=== PATIENT | male | born 1955 | race Caucasian/White ===

== ENCOUNTER 2020-07-08 15:26 | Observation (INO) | payer MEDICARE, OTHER, SELFPAY ==
[2020-07-08] VITALS (28 sets, daily range): BP systolic 90–120; BP diastolic 64–87; PULSE 61–93; RESP 9–18; TEMP 36.4–36.6; O2SAT 93–100; BMI 25.5
--- NOTE | ~2020-07-08 | US_ITS ---
EXAMINATION: US carotid duplex BI DATE: 07/09/2020 14:07 INDICATION: Syncope TECHNIQUE: Grayscale, color Doppler, and pulsed Doppler images of the cervical carotid arteries were obtained. The degree of vessel stenosis is placed in one of the following categories: normal, <50%, 5 0-69%, >=70% but less than near-occlusion, near-occlusion, or total occlusion. Note that percent sten osis relative to normal distal artery lumen diameter is indirectly measured from velocity measurement s as described by Morro, et al. Radiology 2003; 229:340-346. Notes: Normal: Peak systolic velocity <125 centimeters/sec and no plaque <50%. Peak systolic velocity <125 ( EDV <40; ICA/CCA PSV ratio <2.0; used these factors only a tandem lesions or low cardiac output or co ntralateral disease) 50-69 %: PSV 125-230 (EDV 40-100; ratio 2-4) >= 70% but less than near occlusion: PSV greater than 230 (EDV > 100; ratio> 4.0) Near Occlusion: PSV that is variable; markedly narrowed lumen Occlusion: Absent flow on color/spectral Doppler and no lumen on luo scale. COMPARISON: None. FINDINGS: RIGHT: The right common carotid artery (CCA) peak systolic velocity (PSV) is 76 cm/s. The right internal car otid artery (ICA) PSV is 73 cm/s. The right ICA end-diastolic velocity (EDV) is 12 cm/s. The right IC A/CCA PSV ratio is 1. The external carotid artery (ECA) PSV is 84 cm/s. There is antegrade flow in th e right vertebral artery. LEFT: The left CCA PSV is 75 cm/s. The left ICA PSV is 61 cm/s. The left ICA EDV is 24 cm/s. The left ICA/C CA PSV ratio is 0.8. The ECA PSV is 72 cm/s. There is antegrade flow in the left vertebral artery. IMPRESSION: 1. Less than 50% stenosis in the right internal carotid artery by sonographic criteria. 2. Less than 50% stenosis in the left internal carotid artery by sonographic criteria. Reviewed, dictated and finalized at [facility]. Reviewed, dictated and finalized at [facility]. IMPRESSION: 1. Less than 50% stenosis in the right internal carotid artery by sonographic c riteria. 2. Less than 50% stenosis in the left internal carotid artery by sonographic cr maoia.
--- NOTE | ~2020-07-08 | CT_ITS ---
EXAMINATION: CT brain wo con EXAM DATE: 07/08/2020 18:25 INDICATION: Syncope, head injury in temporal area when he fell. TECHNIQUE: Spiral CT of the head was performed without contrast. Axial, coronal and sagittal images were reviewed. The dose-length product (DLP) for this examination was 605.33 mGy-cm. The exposure w as tailored according to patient size, and iterative reconstruction (ASIR) was used as additional dos e reduction technique. There is no prior study for comparison. FINDINGS: There is no acute intraparenchymal hemorrhage. No evidence of intraparenchymal brain mass lesion. No evidence of acute infarction. There is no mass effect or midline shift. The ventricles are normal in size. There are no extra-axial collections. There are no acute calvarial fractures. T he orbits are unremarkable. Soft tissue is unremarkable. The visualized sinuses and mastoid air joe ls are well aerated. IMPRESSION: 1. No acute intracranial findings. Reviewed, dictated and finalized at [facility].
--- NOTE | ~2020-07-08 | XR_ITS ---
EXAMINATION: XR chest 1V EXAM DATE: 07/08/2020 18:31 INDICATION: Syncope. Dizziness. Recent stem cell transplant. TECHNIQUE: Portable AP frontal chest x-ray was obtained. There is no prior study for comparison. FINDINGS: There is a double-lumen catheter with right IJ approach. Tip overlying expected position. T he lungs are clear. There are no pleural effusions. The cardiomediastinal silhouette is within norm al limits. There is no pneumothorax suspected. The bones and soft tissues are unremarkable. IMPRESSION: No acute cardiopulmonary findings. Reviewed, dictated and finalized at [facility].
--- NOTE | 2020-07-08 16:06 | ECG_ITS ---
Measurements Intervals [place] Rate: 86 P: 65 NC: 129 QRS: 18 QRSD: 72 T: 40 QT: 349 QTc: 419 Interpretive Statements SINUS RHYTHM INCOMPLETE RIGHT BUNDLE BRANCH BLOCK BASELINE ARTIFACT- I, II, III, AVR, AVL, AVF BORDERLINE ECG Electronically Signed On 07-08-2020 16:44:22 CDT by Liam Florian D.O.
[2020-07-08 16:39] LABS: Basophils Percent Auto 0.1 % (0.2-1.2); Eosinophils Percent Auto 0.3 % (0-4.4); Hematocrit 36.4 % (42.0-52.0); Hemoglobin 12.1 g/dL (14.0-18.0); Immature Granulocyte Absolute 0.16 K/mm3 (0.00-0.031); Immature Granulocyte Percent A 1.6 % (0-0.5); Immature Platelet Fraction Pct 5.5 % (0.9-11.2); Lymphocytes Absolute Auto 0.42 K/mm3 (0.9-3.2); Lymphocytes Percent Auto 4.3 % (18.3-44.2); Mean Corpuscular HGB Conc 33.2 g/dl (32-36); Mean Corpuscular Hemoglobin 32.9 pg (26-34); Mean Corpuscular Volume 98.9 fl (80-100); Mean Platelet Volume 10.7 fl (7.4-10.4); Monocytes Absolute Auto 1.5 K/mm3 (0.1-0.6); Monocytes Percent Auto 15.6 % (2.6-8.5); Neutrophils Absolute Auto 7.6 K/mm3 (1.3-6.7); Neutrophils Percent Auto 78.1 % (45.5-73.1); Platelet Count Result 102 k/mm3 (150-375); Red Blood Count 3.68 M/mm3 (4.6-6.20); Red Cell Distribution Width 18.6 % (11.5-14.5); White Blood Count 9.7 K/mm3 (4.5-10.0)
[2020-07-08 16:48] LABS: Alanine Aminotransferase 43 U/L (4-50); Albumin Level 3.4 g/dL (3.5-5.1); Alkaline Phosphatase 81 U/L (38-126); Anion Gap 6 mmol/L (8-16); Aspartate Amino Transferase 30 U/L (17-59); Bilirubin,Total 0.5 mg/dL (0.2-1.3); Blood Urea Nitrogen 24 mg/dL (9-20); Calcium 8.3 mg/dL (8.4-10.2); Carbon Dioxide 27 mmol/L (22-30); Chloride 103 mmol/L (98-107); Estimated CRCL calculation 54 ml/min; Estimated Glomerular Filt Rate 55; Glucose 101 mg/dL (75-110); INR 1.1; Prothrombin Time 13.9 Seconds (11.1-14.7); Sodium 136 mmol/L (137-145)
[2020-07-08 17:00] LABS: Troponin I 0.015 ng/mL (0.000-0.034)
--- NOTE | 2020-07-08 17:29 | ED.SYNCOPE ---
HPI - Syncope General Chief Complaint: Syncope Stated Complaint: syncopal episode Time Seen by Provider: 07/08/20 17:26 Source: RN notes reviewed History of Present Illness HPI narrative: Patient presents emergency department from home for syncopal episode. Patient states he was sitting down when he stood up he became dizzy and had a syncopal episode. He states he struck his head when he fell and believes he was only out for short amount of time. Patient currently has no complaints he denies any fevers or chills chest pain shortness of breath abdominal pain nausea vomiting or any other symptoms. Patient states he does have a recent history of a bone marrow transplant and is followed by [facility] with bone marrow transplant in April Related Data Home Medications Medication Instructions Recorded Confirmed acyclovir TID 07/08/20 dronabinol [Marinol] 5 mg PO BID 07/08/20 duloxetine mg PO DAILY 07/08/20 ezetimibe mg DAILY 07/08/20 famotidine DAILY 07/08/20 fluconazole DAILY 07/08/20 mycophenolate mofetil PO TID 07/08/20 ondansetron HCl PRN 07/08/20 prednisone 40 mg PO DAILY 07/08/20 sulfamethoxazole-trimethoprim 07/08/20 tacrolimus PO BID 07/08/20 Allergies Allergy/AdvReac Type Severity Reaction Status Date / Time hydrocodone Allergy Mild ANXIOUS/RESTLESS/UNABLE Verified 02/12/15 08:08 TO SLEEP FOR SEVERAL DAYS Review of Systems Review of Systems: Narrative: Gen.: Denies fevers or chills Eyes: Denies eye pain or visual change ENT: Denies congestion Respiratory: Denies shortness of breath or cough CV: Denies chest pain or palpitations, reports syncopal episode GI: Denies abdominal pain nausea, emesis or diarrhea denies burning, urgency, frequency or hematuria Musculoskeletal: Denies back pain or muscle pain Neuro: Denies numbness, tingling, weakness or focal weakness Skin: Denies rash Except as documented, all other systems reviewed and negative [facility] Surgical History Surgical History (Updated 07/08/20 @ 17:31 by Jv Jeter DO) Bone marrow replaced by transplant Social History Social History (Updated 07/08/20 @ 17:31 by Jv Jeter DO) Smoking status: Never smoker Gender identity (if verbalized by the patient): Male Exam Narrative: Exam Narrative: APPEARANCE: No acute distress, nontoxic, resting in bed EYES: EOMI, Michael HEENT: Normocephalic, mild abrasion to left posterior inferior scalp, OMM, nares patent RESPIRATORY: No respiratory distress Clear to auscultation bilaterally with no rhonchi wheezing or rales. CARDIOVASCULAR: Regular rate and rhythm without murmurs rubs or gallops. ABDOMINAL: Soft, nontender, nondistended, no rebound or guarding MUSCULOSKELETAl: Moves all extremities. No clubbing, cyanosis or edema. NEURO: Awake and alert x 4. Following commands, speech normal, no focal deficits SKIN:: Warm, dry. No rashes lesions or abrasions PSYCHIATRIC: Normal affect/mood, Course Course Emergency Course: Called and discussed with Dr. Berry at [facility] for hematology. Discussed presentation work-up. Does accept transfer at this time but states with discussion with transfer line [place] will have no beds this evening. They state if the patient is admitted to our facility and orthostasis has improved they can be discharged tomorrow without need for transfer but will place on waiting list as of the patient does continue to have orthostasis or further syncope will be transferred when bed available at [place] Discussed with Dr. Hoff presentation work-up. Agrees with admission at this time Discussed with patient and family results of workup and diagnosis. Discussed need for admission. Patient and family understand and agree to current treatment plan Vital Signs Vital signs: Vital Signs Temperature 97.5 F L 07/08/20 16:20 Pulse Rate 93 07/08/20 16:20 Respiratory Rate 18 07/08/20 16:20 Blood Pressure 96/68 L 07/08/20 16:20 Pulse O
[2020-07-08] MEDS: SODIUM CHLORIDE 0.9% IV 1,000 ML 999 ML IV CONT ×2 (17:46→21:34)
[2020-07-08 19:28] LABS: Add Urine Microscopic? YES; Appearance Urine Clear (Clear); Bilirubin Urine Negative (Negative); Blood Urine Negative (Negative); Color Urine Yellow (Yellow); Glucose Urine UA 1+ mg/dL (Negative); Ketones Urine Negative (Negative); Leukocyte Esterase Ur Negative LEU/UL (Negative); Mucus Urine Few /lpf; Nitrate Urine Negative (Negative); Protein Urine 1+ mg/dL (Negative); RBC Urine 0-2 /hpf (0-2); Squamous Epithelial Cell Urine Rare /hpf (Few); WBC Urine 0-3 /hpf
[2020-07-08 19:29] LABS: Specific Grav Ur 1.033 (1.001-1.035)
--- NOTE | 2020-07-08 23:07 | ADMGEN ---
This patient, Jv Brown, was admitted to 3 [facility] Surg Room 310-01. Patient/family oriented to hospital policies and general routines including ID bracelet, bed and alarms, visiting hours, pain management, procedures, bathroom and other care routines, personal items, smoking policy, room service/diet, and visiting hours. Valuables list has been completed. Information on how to activate the Rapid Response Team has been discussed. Patient/Family are encouraged to report perceived risks to care and to ask questions if they do not understand what they are told or what they should do.
[2020-07-08] MEDS: SODIUM CHLORIDE 0.9% IV 1,000 ML 125 ML IV CONT (23:41)
[2020-07-09] VITALS (10 sets, daily range): BP systolic 107–130; BP diastolic 65–88; PULSE 58–70; RESP 16–20; TEMP 36.3–36.8; O2SAT 97–99; BMI 25.5
--- NOTE | 2020-07-09 | ECHO_ITS ---
Patient Info Name: Jv Brown Age: 65 years : 1955 Gender: Male Ht: 72 in Wt: 188 lbs BSA: 2.09 m2 HR: 59 bpm BP: 107 / 65 mmHg Heart Rhythm: Sinus Rhythm Technical Quality: Good Exam Date: 07/09/2020 11:19 AM Exam Location: [facility]monary Patient Status: Inpatient Admit Date: 07/08/2020 Staff Ordering Physician: Jaelyn Mo PA-C Accounts Collector: Dru Crabtree, TIFFANI, RT Attending Provider: Jaelyn Mo PA-C Referring Physician: Chely ODONNELL; Exam Type: CA echo doppler color flow Study Info Indications R55 - Syncope and collapse Complete two-dimensional, color flow and Doppler transthoracic echocardiogram is performed. Summary 1. Complete two-dimensional, color flow and Doppler transthoracic echocardiogram is performed. 2. Left ventricular systolic function is normal, estimated at 65-70%. 3. There is mildly increased left ventricular wall thickness. 4. The left ventricular diastolic function is grade II diastolic dysfunction. 5. Right atrial chamber dimension is mildly enlarged. 6. There is no aortic valve stenosis. 7. There is trace tricuspid valve regurgitation. 8. Unable to estimate PA systolic pressure due to poor spectral resolution of tricuspid regurgitant jet velocity. 9. Echo-free space within the pericardium consistent with epicardial fat pad. Left Ventricle Left ventricular chamber dimension is normal. Left ventricular systolic function is normal, estimated at 65-70%. There is mildly increased left ventricular wall thickness. The left ventricular diastolic function is grade II diastolic dysfunction. Right Ventricle Right ventricular chamber dimension is normal. Right ventricular systolic function is normal. Left Atria Left atrial chamber dimension is normal. Right Atria Right atrial chamber dimension is mildly enlarged. Aortic Valve The aortic valve is trileaflet. There is no aortic valve stenosis. There is no aortic valve regurgitation. Pulmonic Valve The pulmonic valve is not well visualized. There is mild pulmonic regurgitation. Mitral Valve The mitral valve has normal leaflets. There is trace mitral valve regurgitation. The mitral valve annulus is mildly calcified. Tricuspid Valve The tricuspid valve leaflets are normal. There is trace tricuspid valve regurgitation. Unable to estimate PA systolic pressure due to poor spectral resolution of tricuspid regurgitant jet velocity. Pericardium/Pleural Echo-free space within the pericardium consistent with epicardial fat pad. Inferior Vena Cava Normal inferior vena cava with >50% collapse upon inspiration consistent with normal right atrial pressure, 5 mmHg. Aorta The aortic root size at the sinus of Valsalva is mildly dilated. Left Ventricular Outflow Tract Name Value Normal LVOT 2D LVOT Diameter 2.2 cm LVOT Doppler LVOT Peak Gradient 6 mmHg LVOT Mean Gradient 3 mmHg LVOT VTI 23 cm LVOT VTI/AV VTI Ratio 0.9 LVOT Stroke Volume 8
[2020-07-09 00:57] LABS: Troponin I 0.018 ng/mL (0.000-0.034)
[2020-07-09] MEDS: ACYCLOVIR 400 MG TABLET PO ×4 (01:22→17:27)
[2020-07-09] MEDS: mycophenolate mofetiL 250 MG CAPSULE 500 MG PO ×4 (01:22→17:27)
[2020-07-09 03:37] LABS: Basophils Percent Auto 0.1 % (0.2-1.2); Eosinophils Absolute Auto 0.1 K/mm3 (0-0.3); Eosinophils Percent Auto 0.8 % (0-4.4); Hematocrit 29.3 % (42.0-52.0); Hemoglobin 9.7 g/dL (14.0-18.0); Immature Granulocyte Absolute 0.14 K/mm3 (0.00-0.031); Immature Granulocyte Percent A 1.9 % (0-0.5); Immature Platelet Fraction Pct 4.3 % (0.9-11.2); Lymphocytes Absolute Auto 0.29 K/mm3 (0.9-3.2); Mean Corpuscular HGB Conc 33.1 g/dl (32-36); Mean Corpuscular Hemoglobin 32.3 pg (26-34); Mean Corpuscular Volume 97.7 fl (80-100); Mean Platelet Volume 10.8 fl (7.4-10.4); Monocytes Absolute Auto 1.2 K/mm3 (0.1-0.6); Monocytes Percent Auto 16.3 % (2.6-8.5); Neutrophils Absolute Auto 5.5 K/mm3 (1.3-6.7); Neutrophils Percent Auto 76.9 % (45.5-73.1); Platelet Count Result 66 k/mm3 (150-375); Red Cell Distribution Width 18.6 % (11.5-14.5); White Blood Count 7.2 K/mm3 (4.5-10.0)
[2020-07-09 03:47] LABS: Anion Gap 1 mmol/L (8-16); Blood Urea Nitrogen 20 mg/dL (9-20); Calcium 7.5 mg/dL (8.4-10.2); Carbon Dioxide 26 mmol/L (22-30); Chloride 108 mmol/L (98-107); Estimated CRCL calculation 70 ml/min; Estimated Glomerular Filt Rate > 60; Glucose 93 mg/dL (75-110); Sodium 135 mmol/L (137-145)
[2020-07-09 03:58] LABS: Troponin I 0.015 ng/mL (0.000-0.034)
[2020-07-09] MEDS: SODIUM CHLORIDE 0.9% IV 1,000 ML 125 ML IV CONT ×2 (07:43→15:59)
[2020-07-09] MEDS: predniSONE 20 MG TABLET 40 MG PO (08:45)
[2020-07-09] MEDS: DULoxetine HCL 20 MG CAPSULE.DR PO (08:46)
[2020-07-09] MEDS: FAMOTIDINE 20 MG TABLET PO (08:46)
[2020-07-09] MEDS: FLUCONAZOLE 100 MG TABLET 200 MG PO (08:46)
[2020-07-09] MEDS: EZETIMIBE 10 MG TABLET PO (08:46)
[2020-07-09 11:23] LABS: Free T4 Free Thyroxine Reflex 1.03 ng/dL (0.78-2.19)
[2020-07-09 13:00] LABS: Total Triiodothyronine (T3) 0.85 NG/ML (0.97-1.69)
--- NOTE | 2020-07-09 13:27 | PM.IMHP ---
H&P: HPI History of Present Illness Date/Time: 07/09/20 13:27 Chief complaint: Syncope, orthostatic hypotension Narrative: Jv Brown is a 65 year old male with PMH significant for myelodysplastic syndrome s/p bone marrow transplant April 2020 complicated by GvHD and followed by Dr. Bhatia at [facility], hyperlipidemia, and chronic pain who presented to the emergency department for the evaluation of a syncopal episode. He reports that he was feeling very weak, lightheaded, and dizzy yesterday. He got up to go into the kitchen and experienced a syncopal episode. He reports that he fell and struck his head. He was only unconscious for a very brief moment. He did not experience prolonged confusion after the episode. His heard his fall and went to assist him. He denies associated vision change, speech change, lateralizing weakness, and paresthesias. He reports no evidence of seizure activity and no urinary incontinence or tongue biting. He denies preceding headache. He did have a mild headache after the fall which has resolved. He denies chest pain, dyspnea, and palpitations. He denies nausea, vomiting, and abdominal pain. He denies urinary complaints. He reports that his bowels are regular and he has no complaints of hematochezia, melena, diarrhea, or constipation. He denies subjective fever and chills. He has no other complaints at this time and he is feeling much better. He has not had any other dizziness or lightheadedness today. Initial workup in the emergency department revealed WBC 9,700 with a neutrophil predominance, Hb 12.1, Hct 36.4, platelets 102, PT 13.9, INR 1.1, APTT 24, sodium 136, potassium 4.0, chloride 103, CO2 27, BUN 24, Cr 1.3, glucose 101, calcium 8.3, bilirubin 0.5, AST 30, ALT 43, ALP 81, troponin 0.015-0.018. protein 6.0, and albumin 3.4. CT brain revealed no evidence of fractures, soft tissue abnormality, infarct, mass, hemorrhage, or mass effect/midline shift. CXR had no evidence of consolidation, effusion, or other abnormality. He was admitted to the hospitalist service for syncope. His case was discussed with [facility] heme/oncology who discussed possible transfer when a bed was available. Review of Systems Review of Systems: Narrative: Constitutional: Denies fever, chills, and fatigue. Reports significant weight loss due to poor appetite following bone marrow transplant. Reports that his appetite is getting better. Eyes: Denies vision change. No additional eye complaints. ENT: Denies change in hearing, nasal congestion, dysphagia, odynophagia, and sore throat. Cardiovascular: Denies palpitations and chest pain. Denies PND and orthopnea. Denies dyspnea on exertion. Denies lower extremity edema. Respiratory: Denies cough and shortness of breath. Gastrointestinal: Denies abdominal pain, nausea, and vomiting. Denies constipation, diarrhea, melena, and hematochezia. Genitourinary: Denies dysuria, frequency, urgency, and hesitancy. Denies hematuria. Musculoskeletal: Reports chronic neck pain. He has no other acute musculoskeletal pain at this time. Skin: Reports small abrasion to the scalp. Neurologic: Denies focal weakness, paresthesias, confusion, and speech change. Denies headaches. Psychiatric: Denies mood change. Denies anxiety and depression. Hematologic: Hx of bone marrow transplant complicated by GvHD. MDS. All systems reviewed & are unremarkable except as noted in HPI and below PMFSH Past Medical History Medical History Chronic pain Zolwg-wldldk-boap disease complicating bone marrow transplantation Hyperlipidemia Myelodysplastic syndrome Transplanted bone marrow present 04/2020 at [facility] and followed by Dr. Bhatia Surgical History Surgical History Bone marrow replaced by transplant Family History Family History (Updated 07/09/20 @ 16:25 by Jaelyn Mo PA-C) Father MDS (myelodysplastic syndro
[2020-07-10] VITALS: PULSE 58
[2020-07-10] MEDS: SODIUM CHLORIDE 0.9% IV 1,000 ML 125 ML IV CONT (01:19)
[2020-07-10 04:00] VITALS: PULSE 58
--- NOTE | 2020-07-10 07:08 | PM.TDS ---
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 Bhatia at [facility], hyperlipidemia, and chronic pain who presented to the emergency department for the evaluation of a syncopal episode. He felt very weak, lightheaded, and dizzy all day. He stood up to go into the kitchen and developed a brief loss of consciousness. He sustained a fall and hit his head. He had no lateralizing symptoms, vision change, speech change, convulsions, tongue biting, urinary incontinence. He had no chest pain, dyspnea, palpitations. He denied nausea, vomiting, diarhea, and constipation. Initial workup in the emergency department revealed WBC 9,700 with a neutrophil predominance, Hb 12.1, Hct 36.4, platelets 102, PT 13.9, INR 1.1, APTT 24, sodium 136, potassium 4.0, chloride 103, CO2 27, BUN 24, Cr 1.3, glucose 101, calcium 8.3, bilirubin 0.5, AST 30, ALT 43, ALP 81, troponin 0.015-0.018. protein 6.0, and albumin 3.4. CT brain was unremarkable with no evidence of fractures, soft tissue abnormality, infarct, mass, hemorrhage, or mass effect/midline shift. CXR had no evidence of consolidation, effusion, or other abnormality. He was orthostatic at presentation to the ED. He received IV fluids. Orthostatic BP impvoed. The episode of syncope was likely secondary to orthostatic hypotension which may be due to poor PO intake/dehydration. I discussed his case with Dr. Bhatia, his oncologist. Due to his underlying immunosuppression, infection cannot be excluded. UA was unremarkable for UTI and CXR did not demonstrate evidence of consolidation. Blood cultures were obtained and empiric cefepime was initiated for empiric coverage per his oncologist's recommendations. Echocardiogram was performed and demonstrated normal LV systolic function with EF 65-70%, grade II diastolic dysfunction, mild right atrial enlargement, trace tricuspid regurgitation, and epicardial fat pad. Carotid doppler demonstrated <50% of the bilateral ICA. Tacrolimus level was ordered and is pending. TSH was elevated at 4.9, free T4 1.03, and total T3 0.85.The patient was accepted by Dr. Bhatia for transfer to [facility]. He was discharged in stable condition the morning of 07/10/20. (2) Orthostatic hypotension: Code(s): I95.1 - Orthostatic hypotension Status: Acute Assessment and Plan: Likely secondary to hypovolemia as the patient reported poor PO intake and appeared clinically dehydrated. Orthostasis has improved with IV fluid rehydration. TARIQ hose were added. (3) Transplanted bone marrow present: Code(s): Z94.81 - Bone marrow transplant status Status: Acute Assessment and Plan: 04/2020 at [facility]. He follows with Dr. Bhatia. Acyclovir, fluconazole, mycophenolate mofetil, tacrolimus, and prednisone were continued. (4) Cazhq-orglhf-rtxj disease complicating bone marrow transplantation: Code(s): T86.09 - Other complications of bone marrow transplant; D89.813 - Nighg-rqfvov-hcog disease, unspecified Status: Acute Assessment and Plan: Plan as above. Immunosuppressive regimen including tacrolimus, prednisone, and mycophenolate mofetil were continued as above. (5) Myelodysplastic syndrome: Code(s): D46.9 - Myelodysplastic syndrome, unspecified Status: Acute Assessment and Plan: S/P bone marrow transplant. He was transferred to [facility] for further care and follow-up with
[2020-07-13 06:42] LABS: Tacrolimus Prograf 3.1 mcg/L
== END 2020-07-10 04:35 | disposition short-term general hospital (02) ==
LOC: ANHED 22:05 → ANH3MEDSUR 22:37
PROVIDERS: Physician Assistant; Admitting Provider Internal Medicine; Emergency Provider Emergency Medicine; PCP Internal Medicine; Visit Provider Hospitalist
DX: I95.1 Orthostatic hypotension (principal); W18.39XA Other fall on same level, initial encounter; D46.9 Myelodysplastic syndrome, unspecified; D89.813 Graft-versus-host disease, unspecified; I65.23 Occlusion and stenosis of bilateral carotid arteries; I50.30 Unspecified diastolic (congestive) heart failure; Z94.81 Bone marrow transplant status; G89.29 Other chronic pain; E78.5 Hyperlipidemia, unspecified; E03.9 Hypothyroidism, unspecified
CPT/HCPCS: 36415; 70450; 71045; 80048; 80053; 80197; 81001; 84439; 84443; 84480; 84484; 85025; 85055; 85610; 85730; 87040; 93005; 93306; 93880; 96360; 96361; 96365; 96376; 99285; A9270; G0378; J0692; J7030; J7512; J7517